=== PATIENT | female | born 1980 ===

== ENCOUNTER 2016-11-30 09:25 | Day surgery (SDC) | payer MEDICAID ==
[2016-11-30 10:28] VITALS: BMI 23.0
[2016-11-30 10:56] VITALS: O2SAT 100
[2016-11-30] MEDS ORDERED: Propofol 10 mg/ml Inj (20 ML) ONE (11:29)
[2016-11-30 11:52] VITALS: TEMP 97
[2016-11-30 14:24] VITALS: BP 107/67; PULSE 68; RESP 13
== END 2016-11-30 12:50 | disposition home or self-care (01) ==
LOC: C.ENDO 09:25
PROVIDERS: ATTEND Internal Medicine Gastroenterology
DX: K59.00 Constipation, unspecified (principal); K64.8 Other hemorrhoids
CPT/HCPCS: 45378; 84703; J2704